=== PATIENT | female | born 1945 | race Caucasian/White ===

== ENCOUNTER 2023-11-22 00:44 | Inpatient (IN) | payer OTHER, SELFPAY ==
[2023-11-21 20:11] VITALS: BP 188/98
[2023-11-21 22:16] LABS: % Basophils 0.4 % (0-2); % Eosinophils 5.9 % (0-6); % Immature Granulocytes 0.3 % (0-0.5); % Lymphocytes 29.8 % (20.5-51.1); % Monocytes 9.2 % (1.7-9.3); % Neutrophils 54.4 % (42.2-75.2); Absolute Eosinophils 0.4 10^3/uL (0-0.7); Absolute Monocytes 0.6 10^3/uL (0.1-0.6); Absolute Neutrophils 3.7 10^3/uL (1.4-6.5); Hematocrit 37.8 % (37.0-47.0); Hemoglobin 12.9 g/dL (12.0-16.0); Mean Corp Hgb Conc. 34.1 g/dL (33.0-37.0); Mean Corpuscular Volume 87.9 fL (81.0-99.0); Nucleated Red Blood Cells % 0 %; Platelet Count 263 10^3/uL (130-400); Red Cell Dist. Width 14.2 % (11.5-14.5); White Blood Cell Count 6.8 10^3/uL (4.8-10.8)
[2023-11-21 22:26] LABS: Monotest Negative (Negative)
[2023-11-21 22:31] LABS: ALT (SGPT) 16 U/L (0-35); AST (SGOT) 28 U/L (14-36); Albumin 4.1 g/dl (3.5-5.0); Alkaline Phosphatase 103 U/L (38-126); Blood Urea Nitrogen 26 mg/dl (7-17); COVID-19 Antigen Negative (Negative); Calcium 9.5 mg/dl (8.4-10.2); Carbon Dioxide 29 mmol/L (22-30); Chloride 103 mmol/L (98-107); Glucose 108 mg/dl (70-99); Magnesium 1.9 mg/dl (1.6-2.3); Potassium 4.6 mmol/L (3.5-5.1); Sodium 141 mmol/L (135-145); Total Bilirubin 0.7 mg/dl (0.2-1.3); Total Protein 6.5 g/dl (6.3-8.2); eGFR > 60.00
[2023-11-21] MEDS: NSS 500 IV (22:51)
--- NOTE | 2023-11-21 23:08 | ED.GENMED ---
History of Present Illness
General
Chief Complaint: Dizziness
Source: patient
Exam Limitations: none
Time Seen by Provider: 11/21/23 21:04
Nursing documentation reviewed up to this point in time: agreed with
History of Present Illness
History of Present Illness:
78 y/o F with h/o gastric bypass remotely
here with lightheadedness, fatigue
she says 3 weeks ago she woke up feeling her neck was stiff, had pain with rotation side to side and flexion
she tried heat for a few dyas and then went to her PCP who gave her muscle relaxant and sent her for xrays which she was told was neg
and then a few days later when she wasn't better, so she went to urgent care where they gave her a medrol dose yumi which also didn't help
she continues to have the limited range of motion fo her neck but also has beenn having other symptoms like feeling lightheaded - even when seated, and fatigued, feels like her vision is off in her right eye, some blurriness, and also has headache.
she has had these symtpoms foer a little while but then tonight she was at a constitution party and went to stand up and felt very lightheaded like she was going to pass out. she says she feels better but not normal.
she has never had this before
no severe sudden hworst headache of life, fever, chills, vomiting, room spining dizziness, numbness/tingling/weakness, slurred speech, sore throat, joint pain
Past History
Past History
ED Past Medical History: GERD
ED Past Surgical History: Appendectomy, Cholecystectomy and Other (Gastric bypass)
Social History
Tobacco: Non-smoker
Alcohol: None
Drug: None
Review of Systems
Review of Systems
Allergies reviewed?: Yes
All Other Systems: Not applicable
Phy Exam
Physical Exam
Physical Exam:
GENERAL: Alert , in no apparent distress
HEAD: NCAT
EYE: pupils equal and reactive, no nystagmus, no photophobia
NECK: no meningismus, can rotate neck side to side but slightly limited, able to flex, mild trapezius tenderness right side;
no bruits
ENT: o/p clr, mmm.
CARDIAC:bradycardia . no edema
LUNGS: Clear breath sounds bilaterally, no acute respiratory distress, no wheezes/rales/rhonchi
ABDOMEN: Soft, without focal tenderness, no r/g, no cvat
NEUROLOGICAL: Alert and orientedx 4, cn intact, no facial asymmetry, 5/5 strength in UE/LE, sensation intact, romberg neg, ambulates without assistance, neg pronator drift
SKIN: Warm and dry, skin intact.
MUSCULOSKELETAL: No edema, well perfused.
PSYCH: Normal and appropriate interaction.
Course
Orders/Labs/Results
Orders:
Orders
11/21/23 20:16
Electrocardiogram (*1) Urgent
Reason for Study: Vertigo / Dizzy
EKG- Treatment ONCE
11/21/23 21:30
CT Head & Neck Angio W/wo IV Urgent
Comment:
Reason For Exam: neck pain 3 weeks, dizziness, blurred vision, head
Cardiac Monitoring- Treatment ONCE
11/21/23 21:33
Orthostatic VS- Treatment ONCE
11/21/23 22:02
COVID-19 Antigen Urgent
Source: Nasal Swab
Complete Blood Count/With Diff Urgent
Comprehensive Metabolic Panel Urgent
Erythrocyte Sed Rate Urgent
Comment: ADD ON
Lyme Progressive Urgent
Magnesium Urgent
Monotest Urgent
11/21/23 22:33
0.9% Sodium Chloride 500 ml [Nss] 500 ml IV BOLUS
11/21/23 23:49
HydrALAZINE [Apresoline] 10 mg IV NOW STA
11/22/23 00:04
Add On- LAB Urgent
Tests Added?: esr
11/22/23 01:00
Flush (0.9% Sodium Chloride) [Flush (Nss)] See Dose Instructions IV PER PROTOCOL
Abnormal Lab Results
11/21/23
22:02
MPV 11.0 H fL
(7.4-10.4)
BUN 26 H mg/dl
(7-17)
Glucose 108 H mg/dl
(70-99)
11/21/23 22:02
11/21/23 22:02
Vital Signs
Initial and Last Documented VS:
Initial Vital Signs
Temp Pulse Resp BP Pulse Ox
97.5 F 69 18 188/98 98
11/21/23 20:11 11/21/23 20:11 11/21/23 20:11 11/21/23 20:11 11/21/23 20:11
Last Documented Vital Signs
Temp Pulse Resp BP Pulse Ox
97.5 F 58 16 205/86 98
11/21/23 20:11 11/21/23 23:30 11/21/23 23:30 11/21/23 23:15 11/21/23 23:30
MDM/Problems Addressed
Differential Diagnosis Includes:
hypertensive urgency, carotid dissection, less likely GCA, lyme, mono, covid, near syncope
MDM/Problems Addressed:
79 y/o F remote gastric bypass, PUD on PPI
3 weeks of neck soreness, then developed headache, lighthehadedness, some blurred vision; no temporal tendenress; no fever, no meningimus
near syncope tonight
bp 200/90s, hr 50s; neuro intact
cta head/neck neg
i think her lightheadedness/headache is from htn; bp 200s/90s no meds previously
will admit after dose of iv hdyralazine;
*Critical Care Note
Total Time (30-74mins, 75-104mins- exclusive of procedures): Not Applicable
ED Attending Note
-
Portions of this chart may have been created with voice recognition software.� Occasional wrong word or��sound alike� substitutions may have occurred due to the inherent limitations of voice recognition software.
Discharge Plan
Departure
Patient Disposition: Admit
Date of Disposition: 11/21/23
Time of Disposition: 23:50
Admit to: Telemetry
Presentation/result/management discussed w/ accepting MD/DO: Hospitalist
Condition: Fair
Covid-19: Not Applicable
Discharge Problem:
Hypertensive urgency, Near syncope
Prescriptions:
No Action
multivitamin [Dkr-Yqdace-Nbpxe] 1 EACH tablet
1 ea PO DAILY
oxycodone-acetaminophen 5 MG/325 MG tablet
1 tab PO Q4HPRN PRN (Reason: pain) Qty: 15 0RF
Referrals:
Yulissa Chino MD [Family Provider] -
Interventions
Interventions:
*Risk Screen - Suicide Last Done: 11/21/23 20:11
*General Assessment Last Done: 11/21/23 20:11
*Neglect/Abuse Screening Last Done: 11/21/23 20:11
ED- Fall Risk Assessment Last Done: 11/21/23 22:14
*ED COVID-19 Vaccine History Last Done: 11/21/23 22:14
ED- Neurological Assessment Last Done: 11/21/23 22:14
ED Swallowing Screen Last Done: 11/21/23 22:13
Discharge Date and Time
Print Language: WELSH
[2023-11-21 23:10] VITALS: BP 184/77
[2023-11-21 23:13] VITALS: BP 198/106
[2023-11-21 23:15] VITALS: BP 205/86
[2023-11-21 23:34] VITALS: BP 184/77; BP 198/106; BP 205/86; PULSE 65; PULSE 77; PULSE 82
[2023-11-22] VITALS (9 sets, daily range): BP systolic 133–190; BP diastolic 70–91; BMI 32.4
--- NOTE | 2023-11-22 00:12 | HPS.HSE ---
Addendum entered and electronically signed by Bonifacio Merida MD 11/22/23 11:39:
H & N CTA
1. No evidence of large vessel occlusion, or arterial dissection.
2. Normal noncontrast head CT.
Original Note:
Family Physician
-
Family Physician: Yulissa Chino
Chief Complaint
-
lightheaded, nearly passed out
History of Present Illness
78F remote HX gastric bypass remotely seen at ER for lightheadedness, fatigue
- started 3 weeks ago she woke up feeling her neck was stiff, had pain with rotation side to side and flexion
- Eval by r PCP who gave her muscle relaxant , had XRs told was neg
- she went to urgent care where they gave her a Medrol dose Pack which also didn't help
- reports limited range of motion fo her neckplus feeling lightheaded - even when seated
- reports some blurriness plus headache.
- tonight at the constitution party, went to stand up and felt very lightheaded like she was going to pass out.
ROS
no severe , fever, chills, vomiting, room spining dizziness, numbness/tingling/weakness, slurred speech, sore throat, joint pain
Medical History
Past Medical History
Past Medical History: Reports GERD; Denies HTN
Past Surgical History: Reports Appendectomy, Cholecystectomy and Other (gastric bypass )
Social History
Tobacco: Non-smoker
Alcohol: None
Family History
Family History: Not pertinent
Allergies / Home Medications
Allergies reflects when Allergies were last updated in [facility] (formerly known as [facility]).
Home Medications with original date entered in [facility] (formerly known as [facility])
Allergy/Medication List:
Allergies
Allergy/AdvReac Type Severity Reaction Status Date / Time
aspirin Allergy Unknown Verified 02/02/14 14:04
gabapentin [From Neurontin] Allergy Tongue Verified 02/02/14 14:04
Swelling
Home Medications
multivitamin (Gps-Enswge-Qgrku tablet) 1 ea PO DAILY 01/26/14
oxycodone-acetaminophen 5 mg-325 mg tablet 1 tab PO Q4HPRN PRN pain #15 tabs 01/26/14
Review of Systems
-
Constitutional: Reports Fatigue
EENT: Reports No Symptoms
Respiratory: Reports No Symptoms
Cardiac: Reports See HPI
Abdomen/GI: Reports No Symptoms
: Reports No Symptoms
Musculoskeletal: Reports No Symptoms
Skin: Reports No Symptoms
Neurological: Reports See HPI
Endocrine: Reports No Symptoms
Hematologic/Lymphatic: Reports No Symptoms
Psych: Reports No Symptoms
Physical Exam
Vital Signs
Vital Signs
Temp Pulse Resp BP Pulse Ox
97.5 F 58 16 205/86 98
11/21/23 20:11 11/21/23 23:30 11/21/23 23:30 11/21/23 23:15 11/21/23 23:30
Physical Exam
General: Well Developed, Well Nourished and No Apparent Distress
HEENT: NormoCephalic, Moist mucous membranes and Atraumatic
Respiratory: Clear
Cardiac: S1/S2 and Regular Rhythm; No Murmur or Rub
GI: Soft, Non Tender, Non Distended and Normal Bowel Sounds; No Organomegaly
Rectal: Deferred by Provider
Musculoskeletal: No Clubbing, No Cyanosis and No Edema
Skin: No Rash
Neuro: Nonfocal/grossly intact
Laboratory Results
-
11/21/23 22:02
11/21/23 22:02
Laboratory Results
Total Bilirubin 0.7 mg/dl (0.2-1.3) 11/21/23 22:02
AST 28 U/L (14-36) 11/21/23 22:02
ALT 16 U/L (0-35) 11/21/23 22:02
Alkaline Phosphatase 103 U/L (38-126) 11/21/23 22:02
Data Reviewed
-
CT Scan: Report Reviewed by me
Lab Data: Labs Reviewed by me
Impression/Plan
-
Vital Signs
Temp Pulse Resp BP Pulse Ox
97.5 F 58 16 205/86 98
11/21/23 20:11 11/21/23 23:30 11/21/23 23:30 11/21/23 23:15 11/21/23 23:30
Laboratory Tests
11/21/23
22:02
WBC 6.8
BUN 26 H
eGFR > 60.00
Lyme Screen IgG & IgM Pending
Monoscreen Negative
SARS-CoV-2 Antigen Negative
HCT : no acute patho
No prior hospitalist admission:
ASSESSMENT & PLAN
Near syncope
Associated with light headedness
HTN urgency - suspect symptomatic
No prior HX HTN
NEG HCT
Nl RFTs
- add Amlodipine 5 mg BID
- IV Hydralazine PRN
- fall precaution
- TLM monitor
- Card consult
Neck stifness of unclear origin
- NEG Covid
- NEG [place] spot
- Pending ESR
- Tylenol PRN
HX GERD
Remote HX Gastric bypass surgery
DVT Px: SQH
Code: Full code
IP TLM
[2023-11-22 00:34] LABS: Erythrocyte Sed Rate 33 mm/hour (0-20)
[2023-11-22] MEDS: NORVASC 5 MG PO ×2 (00:54→08:15)
[2023-11-22] MEDS: APRESOLINE 10 MG IV (00:54)
[2023-11-22] MEDS: FLUSH (NSS) 1 FLUSH IV (01:03)
[2023-11-22] MEDS: TYLENOL 650 MG PO ×2 (05:37→22:49)
[2023-11-22 06:07] LABS: Urine Albumin Negative (Neg - Trace); Urine Bilirubin Negative (Negative); Urine Character Clear (Clear); Urine Color Yellow; Urine Glucose Negative (Negative); Urine Ketone Negative (Negative); Urine Leukocyte Negative (Negative); Urine Nitrite Negative (Negative); Urine Occult Blood Negative (Negative); Urine Specific Gravity 1.005 (<1.030); Urine Urobilinogen Negative (Neg - 1+)
[2023-11-22] MEDS: HEPARIN 5000 UNITS SC ×2 (08:15→21:42)
[2023-11-22 10:00] LABS: Blood Urea Nitrogen 18 mg/dl (7-17); Calcium 9.5 mg/dl (8.4-10.2); Carbon Dioxide 24 mmol/L (22-30); Chloride 105 mmol/L (98-107); Estimated Creatinine Clearance 75 ml/min; Glucose 162 mg/dl (70-99); Potassium 4.2 mmol/L (3.5-5.1); Sodium 142 mmol/L (135-145); eGFR > 60.00
--- NOTE | 2023-11-22 12:08 | CON.CAR ---
Consultation
Consultation Request
Date/Time Consultation Requested: November 22, 2023
Date/Time Consultation Performed: November 22, 2023
Requesting Provider: Hospitalist
Performing Provider: Dr. Anderson Smith
Reason for Consultation: Near syncope
Medical History
-
Chief Complaint: Lightheadedness
History of Present Illness:
We are consulted because when patient stood up she felt lightheaded as if she was going to pass out but did not pass out.
Medical history includes that approximately 3 weeks ago she woke up feeling that her neck was quite stiff, a fair amount of pain with rotation and qnsx-ma-bfxu flexion. She was eventually evaluated by her primary care physician who gave her a
muscle relaxant. She underwent imaging studies which according to the patient were negative. More recently she went to an urgent care center and was prescribed a Medrol Dosepak which did not provide much relief. Last evening while at a green party she
stood up and felt lightheaded as if she was going to pass out but did not pass out.
She has had no chest pain or shortness of breath. She does describe intermittent lightheadedness over the past couple of weeks particularly when she turns her neck.
She also tells me, and her xqggwa-te-aeo at the bedside confirms, she has had some difficulty with word finding over the past 4-5 days. Her nhbflb-ei-qnu volunteers that she has even intermittently forgotten her name.
Additionally patient is found to be rather hypertensive on presentation. During her ER evaluation blood pressures ranged systolic from 184-205 and diastolic from 71-106. No previous diagnosis of hypertension is noted. She has had no chest pain or
shortness of breath. No back pain. She has had no sudden change in vision. No loss of vision. No difficulty with speech, swallow or extremity strength, movement and sensitivity.
- She underwent imaging studies to include a head and neck CTA which demonstrates no evidence of large vessel occlusion or arterial occlusion. Normal noncontrast head CT is found.
- Presenting EKG demonstrates sinus bradycardia at 56 bpm otherwise normal.
She has been started on amlodipine 5 mg twice daily as well as as needed IV hydralazine and review of available data shows blood pressures have subsequently improved, most recent blood pressure 11 AM this morning is 154/78.
PMH:
Morbid obesity, treated and resolved after remote bariatric surgery
VAMSHI she reports resolved after her considerable weight loss
Social History
Tobacco: Non-Smoker
Alcohol: None
Drug: None
Family History
Family History: Reviewed & Not Pertinent
Allergies / Home Medications
Allergy/AdvReac Type Severity Reaction Status Date / Time
aspirin Allergy Unknown Verified 02/02/14 14:04
gabapentin [From Neurontin] Allergy Tongue Verified 02/02/14 14:04
Swelling
�Medication �Instructions �Recorded �Confirmed �Type
multivitamin (Ptd-Lzghkg-Xtrkp 1 ea PO DAILY 01/26/14 01/26/14 History
tablet)
oxycodone-acetaminophen 5 mg-325 1 tab PO Q4HPRN PRN pain #15 tabs 01/26/14 Rx
mg tablet
omeprazole 20 mg capsule,delayed 20 mg PO BID acid reflux 11/22/23 11/22/23 History
release
Review of Systems
-
History Source: Patient
All other systems: Negative unless noted
Constitutional: Fatigue
EENT: No Symptoms
Respiratory: No Symptoms
Cardiac: No Symptoms
Abdomen/GI: No Symptoms
: No Symptoms
Musculoskeletal: Other (neck pain)
Skin: No Symptoms
Neurological: Dizzy and Other (word finding difficulty)
Endocrine: No Symptoms
Hematologic/Lymphatic: No Symptoms
Physical Exam
Vital Signs
Temp Pulse Resp BP Pulse Ox
97.6 F 78 16 154/78 96
11/22/23 11:00 11/22/23 11:00 11/22/23 11:00 11/22/23 11:00 11/22/23 11:00
Lab Results
11/21/23 22:02
11/22/23 08:55
Physical Exam
General: Well Developed, Well Nourished, No Apparent Distress and Comfortable
HEENT: Normocephalic, Anicteric and Moist Mucous Membranes
Respiratory: Clear and Non Labored Respirations
Cardiac: S1/S2, Regular Rhythm and Murmur (03/28 AHSM, no rubs, nl PMI)
Breast: Deferred by me
GI: Soft, Non Tender, Non Distended and Normal Bowel Sounds
Rectal: Deferred by Provider
Musculoskeletal: No Clubbing, No Cyanosis and No Edema
Skin: Warm and Dry
Neuro: Awake, Alert, Oriented, AO x 3 and Tremors (slight resting tremor b/l)
Psych: Calm
Impression / Plan
-
Impression:
HTN urgency
Possible CVA/TIA?
Dizziness
h/o VAMSHI
Recommendations:
Re hypertensive urgency/emergency, concerned about rapid BP drop
-Was started on Norvasc 5 mg twice daily, will change this to 5 mg daily
-Eventually should obtain an echocardiogram but this does not need to be done during a hospital setting if she is otherwise stable for discharge prior to Thursday
Regarding the dizziness, this could be related to CVA/TIA
-Discussed with primary service regarding consideration for MRI and neurologic evaluation
-I do not want to precipitate significant hypotension in the setting of possible acute neurologic event so holding off on ordering orthostatic vital signs
-Will check fasting lipid profile in the morning
total time 75 minutes
Data Reviewed
-
EKG: Tracing Personally Visualized and interpreted
Radiology: Report Reviewed by me
CT Scan: Report Reviewed by me
Labs: Labs Reviewed by me
--- NOTE | 2023-11-22 13:39 | W.PN.HOSP.TC ---
Today's Communication/Plan
-
see outlined plan
Assessment / Plan
Assessment / Plan
Assessment:
Near syncope associated with light headedness
HTN with urgency
- CTA negative
- check MRI brain for CVA eval given weeks of word finding difficult and blurred vision. Elevated BP can mimic CVA symptoms
- PT/OT evals
- Continue Norvasc 5mg, reduce to daily to prevent hypotension
- no events on tele
- consider Echo if still in hospital after holiday otherwise obtain outpatient
- appreciate [facility] cards recs
Neck pain
- check MRI
GERD
Remote hx of gastric bypass
DVT ppx: SC Heparin
Code: Full
Anticipated Discharge: 24 - 48 hours
Subjective/Interval History
-
Date of Service: November 22, 2023
denies any new complaints at present
reports weeks of blurry vision, difficult word finding, neck pain
Objective Data
-
Labs:
Laboratory Results
11/22/23
08:55
Sodium 142
Potassium 4.2
Chloride 105
Carbon Dioxide 24
BUN 18 H
Creatinine 0.6
Glucose 162 H
Calcium 9.5
Vital Signs:
Vital Signs
Temp Pulse Resp BP Pulse Ox
97.6 F 78 16 154/78 96
11/22/23 11:00 11/22/23 11:00 11/22/23 11:00 11/22/23 11:00 11/22/23 11:00
Physical Exam
-
General: No Apparent Distress
HEENT: Normocephalic and Atraumatic
Respiratory: Negative Wheezes
Cardiac: Regular Rhythm and S1/S2
GI: Soft
Genito-urinary: No Costovertebral Tender
Neuro: AO x 3
Psych: Calm
Data Reviewed
-
Total Time Spent with Patient (in minutes): 41
Labs: Labs Reviewed by me
--- NOTE | 2023-11-22 16:05 | CM ---
Alert awake oriented patient who lives alone in a 1 story home with 1 step to enter.She is independent in driving and all activates of daily living.She declined Vn at dc.
Had VN in past . No SNF hx
Pharmacy [facility]
PCP Dr Yulissa Chino
PLAN Home with no anticipated needs
[2023-11-22] MEDS: PROTONIX 20 MG PO (17:16)
[2023-11-23 03:00] VITALS: BP 144/77
--- NOTE | 2023-11-23 06:51 | W.PN.HOSP.TC ---
Today's Communication/Plan
-
discharge
Assessment / Plan
Assessment / Plan
Physical Exam
General: Well Developed, Well Nourished and No Apparent Distress
HEENT: NormoCephalic, Moist mucous membranes and Atraumatic
Respiratory: Clear
Cardiac: S1/S2 and Regular Rhythm; No Murmur or Rub
GI: Soft, Non Tender, Non Distended and Normal Bowel Sounds; No Organomegaly
Musculoskeletal: No Clubbing, No Cyanosis and No Edema
Skin: No Rash
Neuro: AOx3 strength 5/5 all extremities
Assessment:
78F remote hx gastric bypass presents with near syncope hypertension neck stiffness
Near syncope associated with light headedness
HTN with urgency
- CTA negative
- PT/OT eval appreciated no needs, patient able to ambulate without need for assist device
- Blood Pressure improved with Amlodipine 5 mg daily
- appreciate [facility] cards recs outpt follow up for ECHO recommended
-lipid profile appreciated wnl
-MRI brain negative for infarct or intracranial hemorrhage
Neck pain
MRI neck appreciated
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
-Moderate disc herniation C4/C5
-Small disc herniation T5/T6 mild spinal cord compression
Outpatient follow up with orthopedic spine and pain specialists recommended
GERD
Remote hx of gastric bypass
DVT ppx: SC Heparin
Code: Full
Overall symptoms improved though neck pain persists, medically stable for discharge home with outpatient follow up recommendations.
Total Time Preparing Discharge ___50____ minutes including examination of the patient, summary of the hospital stay, instructions for continuing care to all relevant caregivers; and preparation of discharge records, prescriptions, and referral
forms if necessary.
Anticipated Discharge: Today
Subjective/Interval History
-
Date of Service: November 23, 2023
Seen and examined at bedside in no acute distress. Reports frequent loose stools since yesterday but otherwise reports feeling well. Overall improvement in symptoms. Eager to go home. Neck pain stiffness persists. Denies
weakness/numbness/ambulatory issues
Objective Data
-
Labs:
Laboratory Results
11/23/23
06:17
WBC Pending
Hgb Pending
Hct Pending
Plt Count Pending
Sodium Pending
Potassium Pending
Chloride Pending
Carbon Dioxide Pending
BUN Pending
Creatinine Pending
Glucose Pending
Calcium Pending
Vital Signs:
Vital Signs
Temp Pulse Resp BP Pulse Ox
97.5 F 70 16 144/77 97
11/23/23 03:00 11/23/23 03:00 11/23/23 03:00 11/23/23 03:00 11/23/23 03:00
I&O
11/21/23 11/22/23 11/23/23
06:59 06:59 06:59
Intake Total 1380 / 1380
Balance 1380 / 1380
[2023-11-23 07:00] VITALS: BP 133/67
[2023-11-23 07:07] LABS: Blood Urea Nitrogen 19 mg/dl (7-17); Calcium 9.6 mg/dl (8.4-10.2); Carbon Dioxide 28 mmol/L (22-30); Chloride 105 mmol/L (98-107); Estimated Creatinine Clearance 65 ml/min; Glucose 92 mg/dl (70-99); HDL Cholesterol 66 mg/dl; LDL Cholesterol, Calculated 107 mg/dl; Potassium 4.4 mmol/L (3.5-5.1); Sodium 142 mmol/L (135-145); Total Cholesterol 188 mg/dl (50-199); Triglyceride 78 mg/dl (10-149); Very Low Density Lipoprotein 15 mg/dl (0-30); eGFR > 60.00
[2023-11-23] MEDS: NORVASC 5 MG PO (07:30)
[2023-11-23] MEDS: PROTONIX 20 MG PO (07:30)
[2023-11-23] MEDS: HEPARIN 5000 UNITS SC (07:30)
[2023-11-23 10:54] VITALS: BP 154/84; PULSE 76; O2SAT 98
[2023-11-23 11:00] VITALS: BP 154/84
[2023-11-23 11:55] LABS: Hematocrit 39.1 % (37.0-47.0); Hemoglobin 13.5 g/dL (12.0-16.0); Mean Corp Hgb Conc. 34.5 g/dL (33.0-37.0); Mean Corpuscular Hgb 30.6 pg (27.0-31.0); Mean Corpuscular Volume 88.7 fL (81.0-99.0); Mean Platelet Volume 12.3 fL (7.4-10.4); Platelet Count 274 10^3/uL (130-400); Red Blood Cell Count 4.41 10^6/uL (4.20-5.40); Red Cell Dist. Width 14.3 % (11.5-14.5); White Blood Cell Count 5.2 10^3/uL (4.8-10.8)
[2023-11-23 12:14] LABS: Lyme Antibody Screen, EIA Negative (Negative)
--- NOTE | 2023-11-23 14:54 | W.DCSUMMARY ---
Discharge Summary
Discharge Data
Date of Admission: 11/22/23
Date of Discharge: 11/23/23
-
Pending Results: No
Discharge Plan
-
Patient Disposition: Home (Routine Discharge)
Discharge Diagnosis/Procedures: Near syncope associated with light headedness
Hypertension with urgency
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
Moderate disc herniation C4/C5
Small disc herniation T5/T6 mild spinal cord compression
GERD
History Gastric Bypass
Condition: Fair
Diet: 2 Gram Sodium
Activity: As tolerated
Driving Restrictions: Not until seen by your Dr
Bathing Restrictions: None
Activity Restrictions/Additional Instructions:
Please follow up with primary care provider in 1 week of discharge, Orthopedic Spine and Pain specialists in 1-2 weeks of discharge, and Cardiology in 2-4 weeks of discharge.
For hypertension, you've been started on Amlodipine 5 mg daily. Please keep a daily log of your blood pressures at home and follow up with primary care provider for further adjustment of your blood pressure medication as necessary.
Please take medications as prescribed/recommended and follow up with primary care provider and/or other healthcare provider involved in your care for refills and/or further adjustment to your medication regimen as necessary..
Instructions: Herniated Disc (DC), Chronic Neck Pain (DC), Degenerative disc disease
Referrals:
Fede Ragland MD [Active] - in one to two weeks
Josephine Bingham DO [Active] - in one to two weeks
Yulissa Chino MD [Family Provider] - in one week
Anderson Smith MD [Active] - in two to four weeks
Prescriptions:
New
amlodipine 5 mg Tablet
5 mg PO DAILY 30 Days Qty: 30 0RF
Continued
multivitamin [Mww-Rwgwqt-Mlrch] 1 EACH tablet
1 ea PO DAILY
Patient Comments:
pt does not take
oxycodone-acetaminophen 5 MG/325 MG tablet
1 tab PO Q4HPRN PRN (Reason: pain) Qty: 15 0RF
Patient Comments:
pt no longer takes
omeprazole 20 mg Capsule,Delayed Release(Dr/Ec)
20 mg PO BID
Discharge Orders:
Discharge Patient (As Directed); Ordered 11/23/23
Ordered By: Samara Pinedo
Discharge Date and Time
Print Language: MONEGASQUE
--- NOTE | 2023-11-23 14:59 | CM ---
Reviewed the chart notes. Discharge today to home with no needs identified. Patient's family to provide transportation.
[2023-11-23 15:10] VITALS: BP 193/69
[2023-11-24 11:40] LABS: Glycohemoglobin (HgbA1c) 5.6 % (4.0-5.6)
== END 2023-11-23 15:37 | disposition home or self-care (01) | DRG 312 ==
LOC: 3 WEST ACU 00:44
PROVIDERS: Internal Medicine; Internal Medicine Cardiovascular Disease; Nurse Practitioner Gerontology; Physician Assistant; ADMITTING PHYSICIAN Internal Medicine; ATTENDING PHYSICIAN Internal Medicine; CONSULT PHYSICIAN Internal Medicine Cardiovascular Disease; EMERGENCY PHYSICIAN Emergency Medicine; FAMILY PHYSICIAN Family Medicine
DX: R55 Syncope and collapse (principal); M50.021 Cervical disc disorder at C4-C5 level with myelopathy; I16.0 Hypertensive urgency; I10 Essential (primary) hypertension; M48.02 Spinal stenosis, cervical region; K21.9 Gastro-esophageal reflux disease without esophagitis; E66.01 Morbid (severe) obesity due to excess calories; Z68.32 Body mass index [BMI] 32.0-32.9, adult; Z98.84 Bariatric surgery status
CPT/HCPCS: 70496; 70498; 70551; 72141; 80048; 80053; 80061; 81003; 83036; 83735; 85025; 85027; 85652; 86308; 86618; 87811; 93005; 97161; 97165; 99285; Q9967